=== PATIENT | female | born 2000 | race Caucasian/White ===

== ENCOUNTER 2024-05-15 15:27 | Emergency (ER) | payer OTHER ==
[~2024-05-15] VITALS: Ht 162.6 cm; Wt 60.0 kg
[2024-05-15 15:37] VITALS: BP 108/61; PULSE 103; RESP 18; TEMP 98; O2SAT 98
== END 2024-05-15 18:00 | disposition home or self-care (01) ==
LOC: ER 15:27
DX: B34.9 Viral infection, unspecified (principal); Z20.822 Contact with and (suspected) exposure to COVID-19
CPT/HCPCS: 87426; 87804; 99283